=== PATIENT | male | born 1975 | race Caucasian/White ===

== ENCOUNTER 2020-10-24 11:22 | Emergency (ER) | payer MEDICAID ==
[~2020-10-24] VITALS: Ht 177.8 cm; Wt 94.4 kg
[2020-10-24 11:30] VITALS: BP 132/93
[2020-10-24] MEDS ORDERED: OFLO5DRO5 RIGHT EAR (11:48)
== END 2020-10-24 12:04 | disposition home or self-care (01) ==
LOC: ER 11:22
DX: H60.91 Unspecified otitis externa, right ear (principal); F41.9 Anxiety disorder, unspecified; F10.10 Alcohol abuse, uncomplicated; F12.90 Cannabis use, unspecified, uncomplicated; F15.90 Other stimulant use, unspecified, uncomplicated; Z98.890 Other specified postprocedural states; Z88.0 Allergy status to penicillin; Z79.2 Long term (current) use of antibiotics; Y90.9 Presence of alcohol in blood, level not specified
CPT/HCPCS: 99282; 99283

== ENCOUNTER 2020-11-29 16:59 | Emergency (ER) | payer MEDICAID ==
[~2020-11-29] VITALS: Ht 180.3 cm; Wt 110.0 kg
[~2020-11-29 16:59] MED LIST: OFLO5DRO5 RIGHT EAR
[2020-11-29 17:06] VITALS: BP 128/86
== END 2020-11-29 19:28 | disposition left against medical advice (07) ==
LOC: ER 16:59
DX: M54.9 Dorsalgia, unspecified (principal); Z53.21 Procedure and treatment not carried out due to patient leaving prior to being seen by health care provider